=== PATIENT | male | born 1960 | race Hispanic/Latino ===

== ENCOUNTER 2019-05-20 10:15 | Day surgery (SDC) | payer BC ==
[~2019-05-20 10:15] MED LIST: ceFAZolin/STERILE WATER 2 GM/20 ML SYRINGE IV NR
--- NOTE | 2019-05-20 11:27 | Anesthesia Day of Surgery ---
Anesthesia Day of Surgery - Day of Surgery Patient Examined: Yes Patient H&P Reviewed: Yes Patient is NPO: Yes Beta Blockers: Yes Cardiac Clearance: Yes
--- NOTE | 2019-05-20 11:27 | Anesthesia Consultation ---
Anesthesia Consult and Med Hx Date of service: 05/20/19 - Airway Anesthetic Teeth Evaluation: Good ROM Head & Neck: Adequate Mental/Hyoid Distance: Adequate Mallampati Class: Class III Intubation Access Assessment: Possibly Difficult - Pulmonary Exam CTA: Yes - Cardiac Exam Cardiac Exam: RRR - Pre-Operative Health Status ASA Pre-Surgery Classification: ASA3 Proposed Anesthetic Plan: General - Pulmonary Hx Smoking: Yes (1/2 PPD X 35 YRS) SOB: Yes (TORRES; chronic) Hx Sleep Apnea: Yes (compliant with CPAP) - Cardiovascular System Hx Hypertension: No (BB for heart function) Hx Coronary Artery Disease: Yes Hx Heart Attack/AMI: Yes (2016; follows with pantographer q6mos) Hx Angina: Yes (chronic; normal nuc ST and LVEF approx 2mos ago) Hx Percutaneous Transluminal Coronary Angioplasty (PTCA): Yes (2016) Hx Cardia Arrhythmia: No - Central Nervous System CVA: No Hx Back Pain: Yes (TO RIGHT LEG) Hx Psychiatric Problems: Yes (PTSD; anxiety) - Gastrointestinal Hx Gastroesophageal Reflux Disease: Yes (well controlled) - Endocrine Hx Renal Disease: No Hx Liver Disease: No Hx Insulin Dependent Diabetes: Yes Hx Thyroid Disease: No - Other Systems Hx Substance Use: Yes (opioid abuse 15yrs ago) Hx Obesity: Yes (BMI 33) - Additional Comments Anesthesia Medical History Comments: Hx PONV. Cardiology clearance on chart.
[2019-05-20] MEDS ORDERED: SCOPOLAMINE TRANSDERMAL PATCH 72 HR TD NR (12:00)
[2019-05-20] MEDS ORDERED: MIDAZOLAM 2 MG/2 ML INJ IV NR (12:00)
[2019-05-20] MEDS ORDERED: LACTATED RINGERS 1,000 ML IV SCH (12:00)
[2019-05-20] MEDS ORDERED: WATER FOR IRRIG STERILE 2000 ML IR ONE ×2 (12:06→13:05)
[2019-05-20] MEDS ORDERED: fentaNYL 100 MCG/2 ML INJ ONE (12:46)
[2019-05-20] MEDS ORDERED: PROPOFOL 200 MG/20 ML VIAL IV ONE (12:46)
[2019-05-20] MEDS ORDERED: LIDOCAINE MPF (2%) 20 MG/1 ML VIAL 5 ML ONE (12:53)
[2019-05-20] MEDS ORDERED: ONDANSETRON 4 MG/2 ML INJ ONE (12:53)
[2019-05-20] MEDS ORDERED: dexAMETHasone 20 MG/5 ML VIAL ONE (12:53)
[2019-05-20] MEDS ORDERED: WATER FOR IRRIG STERILE 1,500 ML BOTTLE IR ONE (13:05)
[2019-05-20] MEDS ORDERED: GENTAMICIN 40 MG/ML VIAL 2 ML ONE (13:11)
--- NOTE | 2019-05-20 13:34 | Short Stay Summary ---
Short Stay Documentation Date of service: 05/20/19 - History H&P: obtained from office - Allergies and Medications Current Medications: Allergies lithium Allergy (Verified 05/07/19 17:18) Unknown Sulfa (Sulfonamide Antibiotics) Allergy (Verified 01/06/16 12:23) Vomiting ciprofloxacin [From Cipro] Adverse Reaction (Verified 05/07/19 17:19) Vomiting , NAUSEA metformin Adverse Reaction (Verified 01/06/16 12:23) Diarrhea prednisone Adverse Reaction (Verified 05/07/19 17:19) Vomiting , NAUSEA Home Medications Medication Instructions Recorded Confirmed Last Taken Type Cholecalciferol (Vitamin D3) 2,000 unit PO DAILY 01/06/16 05/07/19 05/19/19 16:00 History [Vitamin D-3] Cyanocobalamin (Vitamin B-12) 2,500 mcg PO DAILY 01/06/16 05/07/19 05/19/19 16:00 History [Vitamin B-12] Omeprazole [PriLOSEC] 40 mg PO QDAY 01/06/16 05/07/19 01/17/16 06:30 History Sertraline [Zoloft] 200 mg PO QDAY 01/06/16 05/07/19 05/19/19 16:00 History Tamsulosin [Flomax] 0.8 mg PO DAILY 01/06/16 05/07/19 05/19/19 16:00 History Temazepam [Restoril] 30 mg PO QHS PRN 01/06/16 05/07/19 05/19/19 16:00 History Testosterone Undecanoate [Aveed] 1 dose IM QMONTH 01/06/16 05/07/19 04/27/19 11:00 History 5-Hydroxytryptophan (5-Htp) [5-Htp 200 mg PO BID 05/07/19 05/07/19 05/19/19 16:00 History CAP] Aspirin [Adult Aspirin] 81 mg PO DAILY 05/07/19 05/07/19 04/27/19 11:00 History Atorvastatin [Lipitor Tab] 80 mg PO QHS 05/07/19 05/07/19 05/19/19 16:00 History Docusate Sodium [Colace] 100 mg PO BID PRN 05/07/19 05/07/19 05/19/19 16:00 History Dulaglutide [Trulicity] 1.5 mg SQ QWEEK 05/07/19 05/07/19 04/27/19 11:00 History Gabapentin [Neurontin] 100 mg PO Q8HR 05/07/19 05/07/19 05/19/19 16:00 History Insulin Glargine,Hum.rec.anlog 62 unit SQ QHS 05/07/19 05/07/19 05/19/19 16:00 History [Basaglar Kwikpen U-100] Insulin Lispro [Humalog 100 0 units SQ TID 05/07/19 05/07/19 05/19/19 16:00 History UNITS/ML Kwikpen] Nebivolol HCl [Bystolic] 5 mg PO QDAY 05/07/19 05/07/19 05/19/19 16:00 History Nitroglycerin [Nitrostat] 0.4 mg SL Q5M PRN 05/07/19 05/07/19 Unknown History [place]-3/Dha/Epa/Fish Oil [Fish Oil 1 each PO DAILY 05/07/19 05/07/19 05/19/19 16:00 History 1,200 mg Softgel] Pioglitazone HCl [Actos] 45 mg PO DAILY 05/07/19 05/07/19 05/19/19 16:00 History Ranolazine [Ranexa] 1,000 mg PO BID 05/07/19 05/07/19 05/19/19 16:00 History guaiFENesin ER [Mucinex ER] 600 mg PO Q12H 05/07/19 05/07/19 05/19/19 16:00 History oxyCODONE /ACETAMINOPHEN [Percocet 1 tab PO Q6HR PRN 05/07/19 05/07/19 05/19/19 16:00 History 5/325] Active Medications Cefazolin Sodium (Ancef/Sterile Water 2 Gm/20 Ml) 2 gm IV PREOP NR Stop: 05/20/19 23:00 Fentanyl (Sublimaze) 50 mcg IV Q5MIN PRN PRN Reason: Pain , Severe (7-10) Lactated Ringer's (Lactated Ringers) 1,000 mls @ 100 mls/hr IV DIRECT SUZETTE Last Admin: 05/20/19 11:25 Dose: 100 mls/hr Documented by: Midazolam HCl (Versed) 2 mg IV PREOP NR Stop: 05/20/19 23:59 Last Admin: 05/20/19 12:05 Dose: 2 mg Documented by: Scopolamine (Transderm-Scop) 1 each TD PREOP NR Stop: 05/20/19 23:00 Last Admin: 05/20/19 11:30 Dose: 1 each Documented by: - Brief post op/procedure progress note Date of procedure: 05/20/19 Pre-op diagnosis: ELEVATED PSA, BPH Post-op diagnosis: same Procedure: CYSTO, RPG, PUS 20CC, BX Anesthesia: GETA Surgeon: CHARISSE LOWERY Estimated blood loss: minimal Pathology: list (PROSTATE CORES X 12) Specimen disposition: to lab Condition: stable - Hospital course Hospital course: MACROBID & NORCO ON CHART - Disposition Condition at discharge: Stable Disposition: DC-01 TO HOME OR SELFCARE Short Stay Discharge Plan Follow up with: FANNY DEL CID MD [Primary Care Provider] - 7 Days
[2019-05-20] MEDS: fentaNYL 100 MCG/2 ML INJ IV PRN ×2 (13:57→14:09)
[2019-05-20] MEDS ORDERED: HYDROcodone/ACETAMINOPHEN 5-325 MG TAB PO PRN (14:04)
[2019-05-20 14:16] VITALS: BP 108/66
--- NOTE | 2019-05-20 15:15 | Ultrasound Report ---
ULTRASOUND TRANSRECTAL HISTORY: Elevated PSA. TECHNIQUE: Transrectal ultrasound images. FINDINGS: Transrectal ultrasound guidance was provided by radiology during prostate biopsy by the uro logist. Prostate volume measures 21.1 cc. No discrete prostate mass is identified on ultrasound. Plea se correlate with the procedural report as needed. IMPRESSION: Successful ultrasound guidance for prostate biopsy. Signer Name: Benjamín Wade Jr, MD Signed: 05/20/2019 3:11 PM Workstation Name: [id number]
--- NOTE | 2019-05-20 15:45 | Post Anesthesia Evaluation ---
- Post Anesthesia Evaluation Patient Participated: Yes Airway Patent: Yes Stable Respiratory Function: Yes Nausea/Vomiting: No Temp > 96.8F: Yes Pain Manageable: Yes Adequeate Hydration: Yes Anesthesia Complications: No Block Receding Appropriately: Not Applicable Patient on Ventilator: No
--- NOTE | 2019-05-20 15:59 | Fluoroscopy Report ---
FLUOROSCOPY RETROGRADE UROGRAPHY HISTORY: Elevated PSA, BPH FINDINGS: 11 seconds of fluoroscopy time was provided by radiology during retrograde urography by the urologist. 8 fluoroscopic images are presented. There is normal hydration distention of both renal c ollecting systems. No filling defect or abnormal dilatation is identified. Please correlate with the procedural report as needed. IMPRESSION: Unremarkable bilateral retrograde pyelograms. Signer Name: Benjamín Wade Jr, MD Signed: 05/20/2019 3:55 PM Workstation Name: [id number]
--- NOTE | 2019-05-20 17:05 | Operative Report ---
PREOPERATIVE DIAGNOSES: Elevated PSA of 4.4 and benign prostatic hypertrophy. POSTOPERATIVE DIAGNOSES: Elevated PSA of 4.4 and benign prostatic hypertrophy. PROCEDURE: Cystoscopy, bilateral retrograde pyelograms, transrectal ultrasound (20 mL) and biopsy of prostate. SURGEON: Dean Godinez MD ANESTHESIA: General. ESTIMATED BLOOD LOSS: Minimal. FLUIDS: Crystalloid. COMPLICATIONS: No complications. INDICATIONS: This patient is a 58-year-old gentleman known to my service for several years for hypogonadism, on testosterone supplementation and also has lower urinary tract symptoms. Urodynamic testing earlier this year was consistent with muscle weakness with mild obstruction. Peak flow rate of 12 mL, postvoid residual of 0 and bladder capacity of 300 mL. He was also noted to recently have an elevated PSA of 4.4 prompting intervention. Risks, benefits, and complications were explained to the patient and his . They agreed to proceed. DESCRIPTION OF PROCEDURE: The patient was taken to the operative suite, placed in a supine position. After adequate general anesthesia, he was prepped and draped in a sterile fashion. Pancystourethroscopy was performed with a 22-[place] Storz cystoscope, no urethral abnormalities. His prostate displayed some mild trilobar obstruction. In his bladder, no tumors or stones were noted. He does have some mild trabeculation. Bilateral retrograde pyelograms were obtained with an 8-[place] catheter and 8 mL of contrast. No filling defects or obstruction. Next, using a transrectal ultrasound probe, sagittal and transverse measurements were taken, 20 mL gland. No obvious lesions could be appreciated. A 12-core biopsy was taken, four at the base, mid, and apex of the prostate. The patient tolerated the procedure well. Rectal exam was benign. He was extubated and taken to recovery room in stable condition. He will go home on Macrobid and [place]. He appears to have a neurogenic component to his voiding dysfunction, appears suspect secondary to his diabetes. We will discuss these findings with him afterwards TURP may make his urinary symptoms worse. JOB# [id number] MARIE/ZURDO
== END 2019-05-20 14:55 | disposition home or self-care (01) ==
LOC: OR 10:15
PROVIDERS: ATTEND Urology
DX: N40.1 Benign prostatic hyperplasia with lower urinary tract symptoms (principal); R97.20 Elevated prostate specific antigen [PSA]; E11.9 Type 2 diabetes mellitus without complications; N52.01 Erectile dysfunction due to arterial insufficiency; I10 Essential (primary) hypertension; G47.30 Sleep apnea, unspecified; F41.9 Anxiety disorder, unspecified; F32.9 Major depressive disorder, single episode, unspecified; K21.9 Gastro-esophageal reflux disease without esophagitis; E66.9 Obesity, unspecified; I25.10 Atherosclerotic heart disease of native coronary artery without angina pectoris; E78.00 Pure hypercholesterolemia, unspecified; F17.210 Nicotine dependence, cigarettes, uncomplicated; Z90.49 Acquired absence of other specified parts of digestive tract; Z71.3 Dietary counseling and surveillance; Z98.890 Other specified postprocedural states; Z79.899 Other long term (current) drug therapy; Z79.82 Long term (current) use of aspirin; Z79.4 Long term (current) use of insulin; Z88.2 Allergy status to sulfonamides; Z88.8 Allergy status to other drugs, medicaments and biological substances; Z68.33 Body mass index [BMI] 33.0-33.9, adult; Z95.5 Presence of coronary angioplasty implant and graft
CPT/HCPCS: 55700; 74420; 76872; 82962; 88305; 88344; A4217; J0690; J1100; J1580; J2250; J2405; J2704; J3010; J7120; Q9967; 88342